=== PATIENT | female | born 1960 | race Caucasian/White ===

== ENCOUNTER 2020-01-20 09:22 | Outpatient (CLI) | payer BC ==
[2020-01-20] MEDS ORDERED: Iopamidol 370 76% 100 ML VIAL ONE (10:36)
--- NOTE | 2020-01-20 11:03 | CT ---
CT CHEST AND ABDOMEN AND PELVIS WITH IV CONTRATS: HISTORY: Left breast cancer. Initial staging. FINDINGS: Suspicious mass in the left breast and enlarged left axillary lymph nodes are present. No mediastinal, hilar, right axillary, abdominal or pelvic lymphadenopathy is seen. No pleural or pericardial effusions are identified. There are a few solid-appearing peripheral nodules in the lungs measuring 4 mm in the right upper lob e and 4 and 5 mm respectively in the left lower lobe. There are mild dependent changes in the right lung base. The patient is post cholecystectomy. The liver demonstrates decreased attenuation compared to the sp niraj consistent with fatty infiltration. No focal mass or abnormal biliary dilatation is seen. The spleen, pancreas, adrenal glands, and right kidney are normal. A 1 cm nonobstructing left renal calc ulus is present. No free air or free fluid is seen in the abdomen or pelvis. The small bowel loops are not abnormally dilated. A small hiatal hernia is present. Uterus is present. There are vascular calcifications without evidence of aneurysmal dilatation of the thoracoabdominal a penny. There are degenerative changes in the thoracolumbar spine. No osteolytic or osteoblastic lesi ons are identified. IMPRESSION: 1. Left breast malignancy with left axillary lymphadenopathy. 2. Tiny lung nodules. A followup CT scan of the chest is recommended in 3 months. 3. Fatty liver. 4. Small hiatal hernia. 5. Nonobstructing 1 cm left renal calculus. POS: OFF
--- NOTE | 2020-01-20 13:45 | NM ---
NM Bone Scan STANDARD History: Breast cancer. Evaluate for metastatic disease Comparison: None. Findings: Delayed whole-body imaging was performed after the intravenous administration 33 mCi techne tium 99m MDP. Adequate osseous tracer uptake. The kidneys and urinary bladder are visualized. Degenerative changes of the thumb carpometacarpal joints and knees. No abnormal osseous uptake to suggest metastatic disease. Impression: No osseous metastatic disease.
== END 2020-01-20 09:23 | disposition home or self-care (01) ==
LOC: CT 09:22
PROVIDERS: ATTEND Internal Medicine Hematology & Oncology
DX: C50.411 Malignant neoplasm of upper-outer quadrant of right female breast (principal); R59.0 Localized enlarged lymph nodes; R91.8 Other nonspecific abnormal finding of lung field; K76.0 Fatty (change of) liver, not elsewhere classified; K44.9 Diaphragmatic hernia without obstruction or gangrene; N20.0 Calculus of kidney
CPT/HCPCS: 71260; 74177; 78306; A9503; Q9967

== ENCOUNTER 2020-01-21 12:38 | Outpatient (CLI) | payer BC | END 2020-01-21 12:39 | disposition home or self-care (01) | LOC: ULT 12:38 | PROVIDERS: ATTEND Internal Medicine Hematology & Oncology | DX: Z51.11 Encounter for antineoplastic chemotherapy (principal); C50.411 Malignant neoplasm of upper-outer quadrant of right female breast; I35.1 Nonrheumatic aortic (valve) insufficiency; Z79.899 Other long term (current) drug therapy | CPT/HCPCS: 93306 ==